=== PATIENT | male | born 1960 | race Hispanic/Latino ===

== ENCOUNTER 2025-03-25 16:16 | Outpatient (CLI) | payer OTHER ==
[2025-03-25 17:04] LABS: Estimated GFR - POC 75.0
== END 2025-03-25 16:17 | disposition home or self-care (01) ==
LOC: CSHCT 16:16
PROVIDERS: ATTEND Family Medicine
DX: F03.A0 Unspecified dementia, mild, without behavioral disturbance, psychotic disturbance, mood disturbance, and anxiety (principal)
CPT/HCPCS: 36415; 70470; 82565